=== PATIENT | male | born 1960 | race Caucasian/White ===

== ENCOUNTER 2018-04-02 14:55 | Emergency (ER) | payer OTHER ==
[~2018-04-02] VITALS: Ht 177.8 cm; Wt 114.7 kg
[~2018-04-02 14:55] MED LIST: ATEN-102 PO; ATOR40TA49 PO; DIPH50TA PO; FLUT1SPR9; GLIM4TAB PO; HYDR12.56; LISI-363 PO
[2018-04-02 14:59] VITALS: BP 103/62; PULSE 57; RESP 18; TEMP 97.3; O2SAT 95
[2018-04-02] MEDS ORDERED: ASPI1TAB57 PO (15:24)
[2018-04-02] MEDS ORDERED: LIPI40TA PO (15:24)
[2018-04-02] MEDS ORDERED: NIFE60TA58 PO (15:24)
[2018-04-02] MEDS ORDERED: LISI40TA PO (15:24)
[2018-04-02] MEDS ORDERED: METF1000 PO (15:24)
[2018-04-02] MEDS ORDERED: FLUT1SPR5 NASAL (15:24)
[2018-04-02] MEDS ORDERED: ATEN100T PO (15:24)
[2018-04-02] MEDS ORDERED: GLIP10TA6 PO (15:24)
--- NOTE | 2018-04-02 15:40 | PD ---
HPI Chief Complaint: Dizziness Time Seen by Provider: 15:11 Travel History International Travel<30 days: No Contact w/Intl Traveler<30days: No Traveled to known affect area: No History of Present Illness HPI Patient is a 58-year-old male with a history of hypertension diabetes presents the emergency department for evaluation of feeling like he was going to faint. Patient states that he felt like his blood sugar was going low intermittently over the past week, he states is taking his blood sugar when these episodes happen in its normal. He states he is recently started a new blood pressure medication nifedipine and is already on lisinopril metoprolol and hydrochlorothiazide. He states his blood pressure and his primary care physician's office was in excess of 150 systolic and so he was started on nifedipine about 10 days ago. States when the episodes happened he feels like the room is spinning around and he is very weak and all of his muscles. He states sometimes it only lasts for a few moments and sometimes it lasts for longer. Concerned that it was in his blood sugar he presented emergency department for further evaluation. No chest pain no shortness of breath no abdominal pain no head injury no syncopal episode. PFSH Past Medical History Cardiovascular Problems: Yes (HTN) High Cholesterol: Yes Diabetes: Yes Patient Takes Glucophage: Yes Diminished Hearing: No Hypertension: Yes Influenza Vaccination: No Past Surgical History Tonsillectomy: Yes Other Surgery: Yes (INGUINAL HERNIA REPAIR) Social History Alcohol Use: Yes ("3 OR 4 TIMES PER MONTH") Tobacco Use: No Substance Use: No Allergies-Medications (Allergen,Severity, Reaction): Coded Allergies: ciprofloxacin (Unverified Allergy, Severe, RASH, 04/02/18) gadobenic acid (Unverified Allergy, Severe, HIVES, 04/02/18) gadodiamide (Unverified Allergy, Severe, HIVES, 04/02/18) gadoteridol (Unverified Allergy, Severe, HIVES, 04/02/18) metformin (Unverified Allergy, Severe, DIARRHEA, 04/02/18) penicillin G (Unverified Allergy, Severe, RASH, 04/02/18) pioglitazone (Unverified Allergy, Severe, DIARRHEA, 04/02/18) Reported Meds & Prescriptions Reported Meds & Active Scripts Active Reported Aspirin 81 (Aspirin) 81 Mg Tabdr 81 Mg PO DAILY Metformin (Metformin HCl) 1,000 Mg Tab 1,000 Mg PO BIDPC Glipizide 10 Mg Tab 20 Mg PO BIDAC Take 30 minutes before a meal Flonase Allergy Relief (Fluticasone Propionate) 50 Mcg/Actuation [place].susp 2 Spr NASAL DAILY Lipitor (Atorvastatin Calcium) 40 Mg Tab 40 Mg PO HS Atenolol 100 Mg Tab 100 Mg PO DAILY Lisinopril 40 Mg Tab 40 Mg PO DAILY Review of Systems Except as stated in HPI: all other systems reviewed are Neg Physical Exam Narrative GENERAL: Well-developed well-nourished no obvious distress peer SKIN: Focused skin assessment warm/dry. HEAD: Atraumatic. Normocephalic. EYES: Pupils equal and round. No scleral icterus. No injection or drainage. ENT: No nasal bleeding or discharge. Mucous membranes pink and moist. NECK: Trachea midline. No JVD. CARDIOVASCULAR: Minimally bradycardic with regular rhythm. No murmur appreciated. No murmurs gallops or rubs, 2+ bilateral equal pulses in all 4 extremities RESPIRATORY: No accessory muscle use. Clear to auscultation. Breath sounds equal bilaterally. GASTROINTESTINAL: Abdomen soft, non-tender, nondistended. Hepatic and splenic margins not palpable. MUSCULOSKELETAL: No obvious deformities. No clubbing. No cyanosis. No edema. NEUROLOGICAL: Awake and alert. Cranial nerves II through XII grossly intact and nonfocal, 5 out of 5 strength in all 4 extremities. Ambulates with an even narrow-base gait, no ataxia. PSYCHIATRIC: Appropriate mood and affect; insight and judgment normal. Data Data Last Documented VS Vital Signs Date Time Temp Pulse Resp B/P (MAP) Pulse Ox O2 Delivery O2 Flow Rate FiO2 04/02/18 16:55 04/02/18 16:55 55 14 96 Room Air 04/02/18 14:59 97.3 Orders Orders Electrocardiogram (04/02/18 ) Basic Metabolic Panel (Bmp) (04/02/18 15:39) B-Type Natriuretic Peptide (04/02/18 15:39) Ckmb (Isoenzyme) Profile (04/02/18 15:39) Complete Blood Count With Diff (04/02/18 15:39) Magnesium (Mg) (04/02/18 15:39) Troponin I (04/02/18 15:39) Ecg Monitoring (04/02/18 15:39) Iv Access Insert/Monitor (04/02/18 15:39) Oximetry (04/02/18 15:39) Oxygen Administration (04/02/18 15:39) Sodium Chloride 0.9% Flush (Ns Flush) (04/02/18 15:45) Sodium Chlorid 0.9% 500 Ml Inj (Ns 500 M (04/02/18 15:45) Chest, Pa & Lat (04/02/18 15:39) CKMB (04/02/18 15:30) CKMB% (04/02/18 15:30) Ed Discharge Order (04/02/18 16:34) Labs Laboratory Tests Test 04/02/18 15:30 White Blood Count 10.5 TH/MM3 Red Blood Count 5.20 MIL/MM3 Hemoglobin 14.1 GM/DL Hematocrit 42.6 % Mean Corpuscular Volume 82.0 FL Mean Corpuscular Hemoglobin 27.2 PG Mean Corpuscular Hemoglobin Concent 33.2 % Red Cell Distribution Width 13.5 % Platelet Count 248 TH/MM3 Mean Platelet Volume 9.2 FL Neutrophils (%) (Auto) 61.0 % Lymphocytes (%) (Auto) 24.4 % Monocytes (%) (Auto) 9.5 % Eosinophils (%) (Auto) 4.1 % Basophils (%) (Auto) 1.0 % Neutrophils # (Auto) 6.4 TH/MM3 Lymphocytes # (Auto) 2.6 TH/MM3 Monocytes # (Auto) 1.0 TH/MM3 Eosinophils # (Auto) 0.4 TH/MM3 Basophils # (Auto) 0.1 TH/MM3 CBC Comment DIFF FINAL Differential Comment Blood Urea Nitrogen 25 MG/DL Creatinine 1.30 MG/DL Random Glucose 95 MG/DL Calcium Level 8.9 MG/DL Magnesium Level 2.0 MG/DL Sodium Level 139 MEQ/L Potassium Level 4.1 MEQ/L Chloride Level 108 MEQ/L Carbon Dioxide Level 23.9 MEQ/L Anion Gap 7 MEQ/L Estimat Glomerular Filtration Rate 57 ML/MIN Total Creatine Kinase 168 U/L Creatine Kinase MB 1.4 NG/ML Troponin I 0.02 NG/ML B-Type Natriuretic Peptide 52 PG/ML MDM Medical Decision Making Medical Screen Exam Complete: Yes Emergency Medical Condition: Yes Differential Diagnosis Symptomatic bradycardia, medication reaction, ACS unlikely, [place] unlikely, dehydration Narrative Course Patient room to the emergency department, symptoms being attached to starting a new medication is quite possible that he is being overly medicated with antihypertensives. Blood pressure initially was somewhat low, when he talks a blood pressure comes up and symptoms go away, the pressure was monitored and had increased to 140 systolic and his symptoms have completely resolved. His initial workup with EKG chest x-ray basic labs including troponin was unremarkable. Symptoms certainly could be attributed to this nifedipine. I have instructed him to discontinue it for the time being, discussed that any new symptoms are emergent return to the ER including chest pain repeat presyncopal symptoms or syncope. He verbalized understanding and agreement. He will follow-up with his primary care physician in 6 days as previously scheduled, he was instructed to keep a log of his blood pressures and how he is feeling. Diagnosis Primary Impression: Hypotension due to medication Additional Impression: Pre-syncope Patient Instructions: General Instructions, Hypotension (DC) Disposition: 01 DISCHARGE HOME Condition: Stable Collins Freeman MD April 02, 2018 15:40
[2018-04-02] MEDS ORDERED: SODIUM CHLORIDE 0.9% FLUSH 10 ML FLUSH IVF PRN (15:45)
[2018-04-02] MEDS ORDERED: SODIUM CHLORID 0.9% 500 ML INJ 500 ML IV ONE (15:45)
[2018-04-02 15:50] VITALS: O2SAT 96
--- NOTE | 2018-04-02 15:59 | RADRPT ---
EXAM DATE: 04/02/2018 3:54 PM EDT AGE/SEX: 58 years / Male INDICATIONS: Chest discomfort, increased blood pressure for 3 days CLINICAL DATA: This is the patient's initial encounter. Patient reports that signs and symptoms have been present for 3 days and indicates a pain score of 0/10. MEDICAL/SURGICAL HISTORY: Hypertension. None. COMPARISON: No prior [facility] exams available for comparison. FINDINGS: PA and lateral views of the chest demonstrate the lungs to be symmetrically aerated without evidence of mass, infiltrate or effusion. The cardiomediastinal contours are unremarkable. Osseous structures are intact. CONCLUSION: No evidence of acute cardiopulmonary process. Electronically signed by: Brown Hutson MD 04/02/2018 3:57 PM EDT
[2018-04-02 16:01] LABS: AUTOMATED NEUTROPHIL # 6.4 TH/MM3 (1.8-7.7); BASOPHIL # 0.1 TH/MM3 (0-0.2); EOSINOPHIL # 0.4 TH/MM3 (0-0.4); EOSINOPHIL % 4.1 % (0.0-4.0); HEMATOCRIT 42.6 % (39.0-51.0); HEMOGLOBIN 14.1 GM/DL (13.0-17.0); LYMPH % 24.4 % (9.0-44.0); LYMPHOCYTE # 2.6 TH/MM3 (1.0-4.8); MEAN CORPUSCULAR HEMOGLOBIN 27.2 PG (27.0-34.0); MEAN CORPUSCULAR HGB CONC 33.2 % (32.0-36.0); MEAN PLATELET VOLUME 9.2 FL (7.0-11.0); MONO % 9.5 % (0.0-8.0); PLATELET COUNT 248 TH/MM3 (150-450); RED CELL DISTRIBUTION WIDTH 13.5 % (11.6-17.2); WHITE BLOOD COUNT 10.5 TH/MM3 (4.0-11.0)
[2018-04-02 16:09] LABS: CHLORIDE 108 MEQ/L (98-107); SODIUM (NA) 139 MEQ/L (136-145)
[2018-04-02 16:12] LABS: CALCIUM 8.9 MG/DL (8.5-10.1)
[2018-04-02 16:13] LABS: BICARBONATE 23.9 MEQ/L (21.0-32.0); BLOOD UREA NITROGEN 25 MG/DL (7-18); GLUCOSE,RANDOM 95 MG/DL (74-106)
[2018-04-02 16:16] LABS: GLOMERULAR FILTRATION RATE 57 ML/MIN (>89)
[2018-04-02 16:21] LABS: TROPONIN I 0.02 NG/ML (0.02-0.05)
[2018-04-02 16:55] VITALS: BP 111/75; PULSE 55; RESP 14; O2SAT 96
--- NOTE | 2018-04-03 15:23 | EKG ---
Date Performed: 04/02/2018 Time Performed: 15:28:05 PTAGE: 58 years EKG: SINUS BRADYCARDIA NONSPECIFIC T-WAVE ABNORMALITY BORDERLINE ECG NO PREVIOUS TRACING DOCTOR: Tobin Stone Interpretating Date/Time 04/03/2018 15:22:35
== END 2018-04-02 17:11 | disposition home or self-care (01) ==
LOC: PHED 14:55
DX: I95.2 Hypotension due to drugs (principal); R55 Syncope and collapse; R94.31 Abnormal electrocardiogram [ECG] [EKG]; I10 Essential (primary) hypertension; E11.9 Type 2 diabetes mellitus without complications; E78.00 Pure hypercholesterolemia, unspecified
CPT/HCPCS: 71046; 80048; 82550; 82552; 83735; 83880; 84484; 85025; 93005; 96360; 99285; J7040